=== PATIENT | male | born 1985 | race Caucasian/White ===

== ENCOUNTER 2021-06-28 15:48 | Emergency (ER) | payer BC ==
[~2021-06-28] VITALS: Ht 152.4 cm; Wt 93.9 kg
[2021-06-28] MEDS ORDERED: LOSARTAN POTASS50 MG PO (15:56)
[2021-06-28] MEDS ORDERED: ATORVASTATIN CA20 MG PO (15:57)
[2021-06-28] MEDS ORDERED: PEPCID AC20 MG PO (18:35)
[2021-06-28] MEDS ORDERED: METOCLOPRAMIDE10 MG PO (18:35)
== END 2021-06-28 18:53 | disposition home or self-care (01) ==
LOC: ER 15:48
DX: K52.89 Other specified noninfective gastroenteritis and colitis (principal); Z11.52 Encounter for screening for COVID-19